=== PATIENT | male | born 1980 | race Caucasian/White ===

== ENCOUNTER 2019-03-29 20:27 | Emergency (ER) | payer MEDICAID ==
[~2019-03-29] VITALS: Ht 182.9 cm; Wt 121.7 kg
[2019-03-29 20:29] VITALS: BP 190/119
[2019-03-29] MEDS ORDERED: NAPR-56 PO (20:50)
[2019-03-29] MEDS ORDERED: PENI250T2 PO (20:50)
[2019-03-29] MEDS ORDERED: LIDO20SO16 PO (20:50)
== END 2019-03-29 21:33 | disposition home or self-care (01) ==
LOC: ER 20:28
DX: J02.0 Streptococcal pharyngitis (principal); I10 Essential (primary) hypertension; Z98.890 Other specified postprocedural states; Z56.0 Unemployment, unspecified; Z88.5 Allergy status to narcotic agent; Z79.899 Other long term (current) drug therapy
CPT/HCPCS: 99283

== ENCOUNTER 2023-09-07 12:04 | Emergency (ER) | payer MEDICAID ==
[~2023-09-07] VITALS: Ht 182.9 cm; Wt 114.5 kg
[~2023-09-07 12:04] MED LIST: LIDO20SO16 PO
[2023-09-07 12:23] VITALS: TEMP 98.1
[2023-09-07 14:59] VITALS: BP 154/77
[2023-09-07] MEDS ORDERED: ketorolac trometh. 30mg/ml inj. IM ONE (15:45)
[2023-09-07] MEDS ORDERED: IBUP-1984 PO (15:46)
[2023-09-07] MEDS ORDERED: PENI500T2 PO (15:46)
[2023-09-07 16:19] VITALS: PULSE 78; RESP 18; O2SAT 99
== END 2023-09-07 16:15 | disposition home or self-care (01) ==
LOC: ER 12:05
DX: K04.7 Periapical abscess without sinus (principal); K02.9 Dental caries, unspecified; Z88.5 Allergy status to narcotic agent; Z79.1 Long term (current) use of non-steroidal anti-inflammatories (NSAID); Z79.2 Long term (current) use of antibiotics; Z79.899 Other long term (current) drug therapy
CPT/HCPCS: 96372; 99283; J1885

== ENCOUNTER 2024-02-26 03:10 | Emergency (ER) | payer MEDICAID, OTHER ==
[~2024-02-26] VITALS: Ht 182.9 cm; Wt 114.5 kg
[2024-02-26 03:22] VITALS: TEMP 98.4
[2024-02-26] MEDS: ceFAZolin 1gm IM kit IM ONE (05:47)
[2024-02-26 06:29] VITALS: BP 144/92; PULSE 78; RESP 14; O2SAT 99
== END 2024-02-26 06:41 | disposition hospice, inpatient (51) ==
LOC: ER 03:11
DX: S02.31XA Fracture of orbital floor, right side, initial encounter for closed fracture (principal); H50.631 Inferior rectus muscle entrapment, right eye; R40.4 Transient alteration of awareness; M54.2 Cervicalgia; W06.XXXA Fall from bed, initial encounter; Y93.89 Activity, other specified; Y92.89 Other specified places as the place of occurrence of the external cause; Y99.8 Other external cause status; Z88.5 Allergy status to narcotic agent; Z79.899 Other long term (current) drug therapy; Z98.890 Other specified postprocedural states
CPT/HCPCS: 70450; 70486; 72125; 96372; 99285; J0690